=== PATIENT | female | born 1960 | race Caucasian/White ===

== ENCOUNTER 2021-11-08 00:29 | Inpatient (IN) | payer MEDICAID, OTHER ==
[~2021-11-08] VITALS: Ht 160 cm; Wt 50.3 kg
[2021-11-08 02:00] LABS: Basophils # (auto) 0.1 10 ^3/uL (0-0.2); Basophils % (auto) 0.8 % (0.0-2.0); Eosinophils # (auto) 0.1 10 ^3/uL (0-0.8); Hematocrit 36.6 % (36.0-46.0); Lymphocytes # (auto) 1.5 10 ^3/uL (0.4-5.4); Lymphocytes % (auto) 13.3 % (10.0-50.0); Mean Corpuscular Hemoglobin 30.4 pg (28.0-32.0); Mean Corpuscular Hgb Conc. 32.7 g/dL (32.0-36.0); Mean Corpuscular Volume 92.9 fL (80.0-100.0); Monocytes # (auto) 0.9 10 ^3/uL (0-1.3); Monocytes % (auto) 8.2 % (0.0-12.0); Neutrophils # (auto) 8.5 10 ^3/uL (1.6-8.6); Neutrophils % (auto) 76.7 % (37.0-80.0); Red Blood Cells 3.94 10^6/uL (4.0-5.20); Red Cell Distribution Width 14.7 % (11.8-14.3); White Blood Cell 11.1 10^3/uL (4.4-10.8)
[2021-11-08 02:20] LABS: Albumin 4.2 g/dL (3.4-5.0); Anion Gap 10 (5-15); BUN/Creatinine Ratio 39.8; Blood Alcohol < 3.0 mg/dL (0-5); Blood Urea Nitrogen 53 mg/dL (7-18); Calcium 8.6 mg/dL (8.5-10.1); Carbon Dioxide 25 mmol/L (21-32); Chloride 110 mmol/L (98-107); GFR African American 52 mL/min; GFR Non-African American 43 mL/min; Glucose 189 mg/dL (74-106); Magnesium 2.7 mg/dL (1.6-2.6); Potassium 3.7 mmol/L (3.5-5.1); Sodium 145 mmol/L (136-145)
[2021-11-08 02:22] LABS: Alanine Aminotransferase 47 U/L (13-56); Alkaline Phosphatase 113 U/L (45-117); Aspartate Aminotransferase 48 U/L (15-37); Bilirubin, Total 0.5 mg/dL (0.2-1.0); Total Protein 7.6 g/dL (6.4-8.2)
[2021-11-08 03:39] LABS: Urine Bacteria MANY /hpf (None Seen); Urine Blood 1+ /uL (Negative); Urine Mucus FEW (None Seen); Urine Specific Gravity 1.019 (1.001-1.035); Urine WBC 241 /hpf (0 - 5); Urine WBC Clumps PRESENT /hpf (None Seen)
[2021-11-08] MEDS ORDERED: cefTRIAXone 1GM/50ML D5W 50 ML IV ONE (04:15)
[2021-11-08] MEDS ORDERED: DOCUSATE SOD 100 MG CAP PO PRN (10:15)
[2021-11-08] MEDS ORDERED: ACETAMINOPHEN 325 MG TAB PO PRN (10:15)
[2021-11-08] MEDS ORDERED: HYDROcodone-ACET 5/325MG TAB PO PRN (10:15)
[2021-11-08] MEDS ORDERED: DEXTROSE (50%) 50ML SYRG IV PRN (10:15)
[2021-11-08] MEDS ORDERED: MORPHINE SULFATE INJ 2 MG/ml SYRG IV PRN (10:15)
[2021-11-08] MEDS ORDERED: ONDANSETRON HCL 4 MG/2 ML VIAL IV PRN (10:15)
[2021-11-08] MEDS: InsuLIN REG 1unit/0.01ml Soln (100units/ml) SC SCH ×3 (11:30→22:00)
[2021-11-08] MEDS: ACCU-CHEK COMFORT CURVE STRIP VI SCH ×3 (12:20→23:21)
[2021-11-08 14:22] VITALS: BP 166/77
[2021-11-08] MEDS ORDERED: LISI40TA11 PO (15:26)
[2021-11-08] MEDS ORDERED: METF-869 PO (15:26)
[2021-11-08] MEDS ORDERED: GLIP5TAB12 PO (15:26)
[2021-11-08] MEDS ORDERED: ASPI81CH59 PO (15:26)
[2021-11-08] MEDS ORDERED: DOCU100C10 PO (15:26)
[2021-11-08 16:32] VITALS: BP 166/77
[2021-11-08 22:00] VITALS: BP 165/89
[2021-11-09] MEDS: InsuLIN REG 1unit/0.01ml Soln (100units/ml) SC SCH ×4 (06:39→22:00)
[2021-11-09] MEDS: ACCU-CHEK COMFORT CURVE STRIP VI SCH ×4 (06:39→23:43)
[2021-11-09 09:00] VITALS: BP 143/79
[2021-11-09 09:21] LABS: Basophils # (auto) 0.1 10 ^3/uL (0-0.2); Basophils % (auto) 1.2 % (0.0-2.0); Eosinophils # (auto) 0.2 10 ^3/uL (0-0.8); Eosinophils % (auto) 2.4 % (0.0-7.0); Hematocrit 35.4 % (36.0-46.0); Hemoglobin 11.5 g/dL (12.2-16.2); Lymphocytes % (auto) 13.2 % (10.0-50.0); Mean Corpuscular Hemoglobin 30.3 pg (28.0-32.0); Mean Corpuscular Hgb Conc. 32.5 g/dL (32.0-36.0); Mean Corpuscular Volume 93.1 fL (80.0-100.0); Monocytes # (auto) 0.5 10 ^3/uL (0-1.3); Monocytes % (auto) 6.3 % (0.0-12.0); Neutrophils # (auto) 5.9 10 ^3/uL (1.6-8.6); Neutrophils % (auto) 76.9 % (37.0-80.0); Nucleated Red Blood Cells % 0.1 %; Red Cell Distribution Width 14.3 % (11.8-14.3); White Blood Cell 7.6 10^3/uL (4.4-10.8)
[2021-11-09 09:40] LABS: Albumin 3.4 g/dL (3.4-5.0); Calcium 8.5 mg/dL (8.5-10.1); Potassium 3.9 mmol/L (3.5-5.1)
[2021-11-09 09:42] LABS: BUN/Creatinine Ratio 46.9; Bilirubin, Total 0.5 mg/dL (0.2-1.0); Total Protein 6.7 g/dL (6.4-8.2)
[2021-11-09] MEDS: ENOXAPARIN SOD 40 MG/0.4 ML SYRINGE SC SCH (10:00)
[2021-11-09] MEDS ORDERED: cefTRIAXone 1GM/50ML D5W 50 ML IV ONE (10:30)
[2021-11-09] MEDS ORDERED: DEXTROSE (50%) 50ML SYRG IV PRN (10:45)
[2021-11-09 13:00] VITALS: BP 166/87
[2021-11-09] MEDS ORDERED: ASPirin 81 mg TAB PO ONE (14:15)
[2021-11-09 16:45] VITALS: BP 167/79
[2021-11-09] MEDS: metFORMIN HYDROCHLORIDE 500 MG TAB PO SCH (18:06)
[2021-11-09] MEDS ORDERED: LISINOPRIL 20 MG TAB PO ONE (18:15)
[2021-11-09 22:00] VITALS: BP 162/93
[2021-11-09] MEDS: DOCUSATE SOD 100 MG CAP PO SCH (22:00)
[2021-11-10] MEDS: InsuLIN REG 1unit/0.01ml Soln (100units/ml) SC SCH ×4 (07:00→22:00)
[2021-11-10] MEDS: ACCU-CHEK COMFORT CURVE STRIP VI SCH ×4 (07:00→22:00)
[2021-11-10 08:46] VITALS: BP 173/84
[2021-11-10] MEDS: DOCUSATE SOD 100 MG CAP PO SCH ×2 (09:41→22:00)
[2021-11-10] MEDS: LISINOPRIL 20 MG TAB PO SCH (09:41)
[2021-11-10] MEDS: ENOXAPARIN SOD 40 MG/0.4 ML SYRINGE SC SCH (09:41)
[2021-11-10] MEDS: cefTRIAXone 1GM/50ML D5W 50 ML IV SCH (09:42)
[2021-11-10] MEDS: metFORMIN HYDROCHLORIDE 500 MG TAB PO SCH ×2 (09:42→17:57)
[2021-11-10 10:07] LABS: Basophils # (auto) 0.1 10 ^3/uL (0-0.2); Basophils % (auto) 1.4 % (0.0-2.0); Eosinophils # (auto) 0.2 10 ^3/uL (0-0.8); Eosinophils % (auto) 2.8 % (0.0-7.0); Hemoglobin 11.5 g/dL (12.2-16.2); Lymphocytes # (auto) 0.9 10 ^3/uL (0.4-5.4); Lymphocytes % (auto) 14.5 % (10.0-50.0); Mean Corpuscular Hemoglobin 30.1 pg (28.0-32.0); Mean Corpuscular Volume 93.8 fL (80.0-100.0); Monocytes # (auto) 0.5 10 ^3/uL (0-1.3); Neutrophils # (auto) 4.8 10 ^3/uL (1.6-8.6); Neutrophils % (auto) 74.3 % (37.0-80.0); Red Blood Cells 3.84 10^6/uL (4.0-5.20); Red Cell Distribution Width 14.5 % (11.8-14.3); White Blood Cell 6.5 10^3/uL (4.4-10.8)
[2021-11-10 10:17] LABS: BUN/Creatinine Ratio 43.9; Calcium 8.7 mg/dL (8.5-10.1); Potassium 4.2 mmol/L (3.5-5.1)
[2021-11-10] MEDS ORDERED: ASPI81CH59 PO (10:57)
[2021-11-10] MEDS ORDERED: GLIP5TAB12 PO (10:57)
[2021-11-10] MEDS ORDERED: DOCU100C10 PO (10:57)
[2021-11-10] MEDS ORDERED: METF-869 PO (10:57)
[2021-11-10] MEDS ORDERED: LISI40TA11 PO (10:57)
[2021-11-10] MEDS ORDERED: LEVO750T64 PO (10:57)
[2021-11-10] MEDS: ASPirin 81 mg TAB PO SCH (12:15)
[2021-11-10 12:31] VITALS: BP 182/102
[2021-11-10 13:30] VITALS: BP 158/89
[2021-11-10 16:20] VITALS: BP 164/83
[2021-11-10 20:00] VITALS: BP 173/84
[2021-11-10 22:00] VITALS: BP 169/97
[2021-11-11 05:00] VITALS: BP 148/87
[2021-11-11] MEDS: ACCU-CHEK COMFORT CURVE STRIP VI SCH ×4 (06:02→21:33)
[2021-11-11] MEDS: InsuLIN REG 1unit/0.01ml Soln (100units/ml) SC SCH ×5 (06:02→21:34)
[2021-11-11 08:30] VITALS: BP 163/94
[2021-11-11] MEDS: metFORMIN HYDROCHLORIDE 500 MG TAB PO SCH ×2 (08:30→18:23)
[2021-11-11] MEDS: cefTRIAXone 1GM/50ML D5W 50 ML IV SCH (08:30)
[2021-11-11 09:00] VITALS: BP 163/94
[2021-11-11] MEDS: ENOXAPARIN SOD 40 MG/0.4 ML SYRINGE SC SCH (10:00)
[2021-11-11] MEDS: DOCUSATE SOD 100 MG CAP PO SCH ×2 (10:20→22:00)
[2021-11-11] MEDS: ASPirin 81 mg TAB PO SCH (10:20)
[2021-11-11] MEDS: LISINOPRIL 20 MG TAB PO SCH (10:21)
[2021-11-11] MEDS ORDERED: amLODIPine BESYLATE 5 MG TAB PO ONE (12:15)
[2021-11-11] MEDS ORDERED: levoFLOXacin 250 MG TAB PO ONE (12:30)
[2021-11-11 13:00] VITALS: BP 164/96
[2021-11-11] MEDS ORDERED: glipiZIDE 5 MG TAB PO ONE (17:30)
[2021-11-11] MEDS: glipiZIDE 5 MG TAB PO SCH (18:24)
[2021-11-11 19:54] VITALS: BP 164/96
[2021-11-11 22:00] VITALS: BP 141/71
[2021-11-12 05:00] VITALS: BP 165/87
[2021-11-12] MEDS: DOCUSATE SOD 100 MG CAP PO SCH ×2 (05:01→10:00)
[2021-11-12] MEDS: metFORMIN HYDROCHLORIDE 500 MG TAB PO SCH ×2 (06:49→18:33)
[2021-11-12] MEDS: glipiZIDE 5 MG TAB PO SCH ×2 (06:50→18:33)
[2021-11-12] MEDS: InsuLIN REG 1unit/0.01ml Soln (100units/ml) SC SCH ×3 (06:53→18:33)
[2021-11-12] MEDS: ACCU-CHEK COMFORT CURVE STRIP VI SCH ×3 (06:55→18:33)
[2021-11-12 08:10] VITALS: BP 92/53
[2021-11-12] MEDS ORDERED: amLODIPine BESYLATE 5 MG TAB PO SCH (10:00)
[2021-11-12] MEDS: LISINOPRIL 20 MG TAB PO SCH (10:00)
[2021-11-12] MEDS: ENOXAPARIN SOD 40 MG/0.4 ML SYRINGE SC SCH (10:00)
[2021-11-12] MEDS: ASPirin 81 mg TAB PO SCH (10:15)
[2021-11-12 12:15] VITALS: BP 184/98
[2021-11-12 14:54] VITALS: BP 184/98
[2021-11-12 17:15] VITALS: BP 151/78
== END 2021-11-12 19:45 | disposition home or self-care (01) | DRG 52 ==
LOC: ER 00:29 → OVERFLOW 10:08 → WEST WING 13:55
PROVIDERS: ADMIT Internal Medicine; ATTEND Internal Medicine Pulmonary Disease
DX: G93.41 Metabolic encephalopathy (principal); E11.9 Type 2 diabetes mellitus without complications; I10 Essential (primary) hypertension; Z20.822 Contact with and (suspected) exposure to COVID-19; I25.10 Atherosclerotic heart disease of native coronary artery without angina pectoris; Z79.84 Long term (current) use of oral hypoglycemic drugs; Z86.73 Personal history of transient ischemic attack (TIA), and cerebral infarction without residual deficits; Z79.82 Long term (current) use of aspirin; N39.0 Urinary tract infection, site not specified
CPT/HCPCS: 36415; 70450; 71045; 80048; 80053; 80320; 81001; 82140; 82962; 83036; 83605; 83735; 83880; 84484; 85025; 87086; 93005; 93970; 96365; G0378; J0696; J1815